=== PATIENT | female | born 1960 | race Caucasian/White ===

== ENCOUNTER 2024-04-27 06:45 | Day surgery (SDC) | payer MEDICARE, BC ==
[2024-04-27] MEDS: Lactated Ringers 1,000 ML IV SCH (07:31)
[2024-04-27] MEDS ORDERED: Propofol 200 MG/20 ML SDV ONE ×2 (08:03→08:49)
[2024-04-27] MEDS ORDERED: fentaNYL 50 MCG/ML SDV ONE (08:03)
[2024-04-27] MEDS ORDERED: Midazolam 1 MG/ML 2 ML SDV ONE (08:03)
== END 2024-04-27 10:38 | disposition home or self-care (01) ==
LOC: JP.SDS 06:45
PROVIDERS: ATTEND Family Medicine
DX: Z12.11 Encounter for screening for malignant neoplasm of colon (principal); K64.8 Other hemorrhoids; K64.4 Residual hemorrhoidal skin tags
CPT/HCPCS: G0121; J2250; J2704; J3010; J7120; 00812-QZ